=== PATIENT | male | born 1970 | race Caucasian/White ===

== ENCOUNTER 2018-12-23 10:07 | Emergency (ER) | payer SELFPAY ==
[~2018-12-23] VITALS: Ht 167.6 cm; Wt 72.4 kg
[2018-12-23 10:09] VITALS: BP 133/76; PULSE 62; RESP 16; Ht 167.6 cm; Wt 72.4 kg
[2018-12-23] MEDS ORDERED: IBUP-1542 PO (10:34)
--- NOTE | 2018-12-23 10:38 | ERD ---
ER Documentation Chief Complaint Chief Complaint painful lump on lt foot x 2 months , sent by pmd HPI Patient is a 48-year-old male with no past medical history presents the ER for concerns of a painful lump on his left foot x2 months. Patient was referred here by the Don So. Patient states he would like a lump to be removed. Patient denies any fevers or chills. Patient has no warmth or redness to his affected foot. Patient denies any falls or trauma. ROS All systems reviewed and are negative except as per history of present illness. Medications Home Meds Active Scripts Ibuprofen* (Motrin*) 600 Mg Tab, 600 MG PO Q6, #30 TAB Prov:ALIYAH SZYMANSKI PA-C 12/23/18 Allergies Allergies: Coded Allergies: No Known Allergy (Unverified , 12/23/18) PMhx/Soc Medical and Surgical Hx: pt denies Medical Hx, pt denies Surgical Hx Hx Alcohol Use: No Hx Substance Use: No Hx Tobacco Use: No FmHx Family History: No diabetes Physical Exam Vitals Vital Signs Date Temp Pulse Resp B/P (MAP) Pulse Ox O2 O2 Flow FiO2 Time Delivery Rate 12/23/18 99.0 62 16 133/76 99 10:09 (95) Physical Exam GENERAL: Well-developed, well-nourished male. Appears in no acute distress. HEAD: Normocephalic, atraumatic. EYES: Pupils are equally reactive bilaterally. EOMs grossly intact. No conjunctival erythema. NECK: Supple. No meningismus. Normal range of motion of the neck. EXTREMITIES: Equal pulses bilaterally. No peripheral clubbing, cyanosis or edema. No unilateral leg swelling. NEUROLOGIC: Alert and oriented. Moving all four extremities without any difficulty. Normal speech. Steady gait. SKIN: 1.5 cm round ganglion cyst noted on the dorsal aspect of the foot below digits 4-5. Cyst is movable. No surrounding erythema or warmth. No streaking. L FOOT: Normal range of motion of the foot and all toes. Normal range of motion of ankle. Sensation intact to light touch. Normal pulses. Procedures/MDM MEDICAL DECISION MAKING: This is a 48-year-old male who presents the ER for concerns of ganglion cyst for the last 2 months on his left foot. Patient states he was referred to the ER to have the cyst removed. Vital signs were reviewed. Patient was afebrile. Patient was not hypoxic. On exam, patient is noted to have a ganglion cyst on the dorsal aspect of his left foot. There is no signs of infection. There is no warmth, erythema, or swelling. I explained to the patient that he will need to follow-up with adolescent specialist and/or fence installer helper for removal. Referral information was provided. Low suspicion for fracture, dislocation, septic joint, DVT, cellulitis and abscess. Patient was nontoxic, [id number] prior to discharge PRESCRIPTIONS: Ibuprofen DISCHARGE: At this time, patient is stable for discharge and outpatient management. RICE therapy and ROM exercises were advised to avoid stiffness. I have instructed the patient to follow-up with his/her primary care physician in 1-2 days. I have discussed with the patient the possibility of needing to see an adolescent specialist for further workup and imaging if the pain persists. I have instructed the patient to promptly return to the ER for any new or worsening symptoms including increased pain, swelling, redness, warmth or fever. The patient and/or family expressed understanding of and agreement with this plan. All questions were answered. Home care instructions were provided. Disclaimer: Inadvertent spelling and grammatical errors are likely due to EHR /dictation software use and do not reflect on the overall quality of patient care. Also, please note that the electronic time recorded on this note does not necessarily reflect the actual time of the patient encounter. Departure Diagnosis: Primary Impression: Ganglion cyst of left foot Condition: Fair Patient Instructions: Ganglion Cyst: Foot Referrals: MEHUL HUTSON HERMOZ B DPM BARAVARIAN, BABAK DPM BELCZYK, RONALD J. DPM CHUN, CAROLYN DPCHANDLER VALLADARES FARID HAGOPJANIAN, ARMEN DPM [facility] YOU HAVE RECEIVED A MEDICAL SCREENING EXAM AND THE RESULTS INDICATE THAT YOU DO NOT HAVE A CONDITION THAT REQUIRES URGENT TREATMENT IN THE EMERGENCY DEPARTMENT. FURTHER EVALUATION AND TREATMENT OF YOUR CONDITION CAN WAIT UNTIL YOU ARE SEEN IN YOUR DOCTORS OFFICE WITHIN THE NEXT 1-2 DAYS. IT IS YOUR RESPONSIBILITY TO MAKE AN APPOINTMENT FOR FOLOW-UP CARE. IF YOU HAVE A PRIMARY DOCTOR --you should call your primary doctor and schedule an appointment IF YOU DO NOT HAVE A PRIMARY DOCTOR YOU CAN CALL OUR PHYSICIAN REFERRAL HOTLINE AT IF YOU CAN NOT AFFORD TO SEE A PHYSICIAN YOU CAN CHOSE FROM THE FOLLOWING [facility] [address] [place] [facility] [address] [place] [facility] [address] [facility] [address] [facility] [address] [facility] [facility] [address] [facility]. [facility] YOU HAVE RECEIVED A MEDICAL SCREENING EXAM AND THE RESULTS INDICATE THAT YOU DO NOT HAVE A CONDITION THAT REQUIRES URGENT TREATMENT IN THE EMERGENCY DEPARTMENT. FURTHER EVALUATION AND TREATMENT OF YOUR CONDITION CAN WAIT UNTIL YOU ARE SEEN IN YOUR DOCTORS OFFICE WITHIN THE NEXT 1-2 DAYS. IT IS YOUR RESPONSIBILITY TO MAKE AN APPOINTMENT FOR FOLOW-UP CARE. IF YOU HAVE A PRIMARY DOCTOR --you should call your primary doctor and schedule and appointment IF YOU DO NOT HAVE A PRIMARY DOCTOR YOU CAN CALL OUR PHYSICIAN REFERRAL HOTLINE AT . IF YOU CAN NOT AFFORD TO SEE A PHYSICIAN YOU CAN CHOSE FROM THE FOLLOWING [facility] INSTITUTIONS: [facility] [address] [place] [address] [facility] [address] [place] [address] [facility] [address] [place] [address] [facility] Care 7 a.m.- 11 p.m. Every Day of the Week NO APPOINTMENT OR AUTHORIZATION NEEDED Additional Instructions: Llame al doctor MAANA y priya marly MANNIE PARA DENTRO DE 1-2 PITTS.Dgale a la secretaria que nosotros le instruimos hacer esta mannie.Avise o llame si contreras condicin se empeora antes de la mannie. Regresa aqui si peor o no mejor. ALIYAH SZYMANSKI PA-C Dec 23, 2018 10:38
== END 2018-12-23 10:51 | disposition home or self-care (01) ==
LOC: FTE 10:07
DX: M67.472 Ganglion, left ankle and foot (principal)
CPT/HCPCS: 99282